=== PATIENT | female | born 2000 | race African-American/Black ===

== ENCOUNTER 2020-08-08 18:28 | Emergency (ER) | payer OTHER ==
[2020-08-08] MEDS ORDERED: ONDANSETRON 4 MG TAB.RAPDIS PO ONE (18:38)
--- NOTE | 2020-08-08 18:39 | ER Document Report ---
ED Medical Screen (RME) - General Chief Complaint: Abdominal Cramping Stated Complaint: ABDOMINAL CRAMPING Time Seen by Provider: 08/08/20 18:35 Mode of Arrival: Ambulatory Information source: Patient Notes: Patient presents complaining of abdominal cramping with some vaginal spotting for the past 6 days. Patient denies any urinary symptoms or vaginal discharge. Patient does report nausea although denies any vomiting or diarrhea. I have greeted and performed a rapid initial assessment of this patient. A comprehensive ED assessment and evaluation of the patient, analysis of test results and completion of the medical decision making process will be conducted by additional ED providers. Physical Exam - Abdominal Tenderness: Tender - Generalized abdomen
[2020-08-08 19:16] LABS: ABSOLUTE EOSINOPHILS # (AUTO) 0.2 10^3/uL (0.0-0.6); ABSOLUTE LYMPHOCYTES (AUTO) 3.8 10^3/uL (0.5-4.7); ABSOLUTE MONOCYTES (AUTO) 0.7 10^3/uL (0.1-1.4); ABSOLUTE NEUT (AUTO) 2.6 10^3/uL (1.7-8.2); BASOPHILS % (AUTO) 0.5 % (0-2); EOSINOPHILS % (AUTO) 3.1 % (0-6); HEMATOCRIT 41.9 % (36.0-47.0); HEMOGLOBIN 14.7 g/dL (12.0-15.5); LYMPHOCYTES % (AUTO) 51.3 % (13-45); MEAN CORPUSCULAR HEMOGLOBIN 32.4 pg (27.0-33.4); MEAN CORPUSCULAR HGB CONC 35.2 g/dL (32.0-36.0); MEAN CORPUSCULAR VOLUME 92 fl (80-97); MONOCYTES % (AUTO) 9.4 % (3-13); PLATELET COUNT 321 10^3/uL (150-450); RED BLOOD COUNT 4.55 10^6/uL (3.72-5.28); RED CELL DISTRIBUTION WIDTH 13.7 % (11.5-14.0); SEGMENTED NEUTROPHILS % (AUTO) 35.7 % (42-78); TOTAL CELLS COUNTED % (AUTO) 100 %; WHITE BLOOD COUNT 7.4 10^3/uL (4.0-10.5)
[2020-08-08 19:22] LABS: APPEARANCE,URINE CLEAR; BILIRUBIN,URINE NEGATIVE (NEGATIVE); COLOR,URINE YELLOW; GLUCOSE, URINE NEGATIVE (NEGATIVE); KETONES,URINE NEGATIVE (NEGATIVE); LEUKOCYTE ESTERASE,URINE NEGATIVE (NEGATIVE); NITRITE,URINE NEGATIVE (NEGATIVE); PROTEIN,URINE 30 mg/dL (NEGATIVE); URINE SPECIFIC GRAVITY 1.032
[2020-08-08 19:30] LABS: ALBUMIN 4.9 g/dL (3.5-5.0); ALKALINE PHOSPHATASE 80 U/L (38-126); ANION GAP 10 (5-19); ASPARTATE AMINO TRANSFERASE 28 U/L (14-36); BILIRUBIN,DIRECT 0.3 mg/dL (0.0-0.4); BILIRUBIN,TOTAL 0.5 mg/dL (0.2-1.3); BLOOD UREA NITROGEN 11 mg/dL (7-20); CALCIUM 9.7 mg/dL (8.4-10.2); CARBON DIOXIDE 27 mmol/L (22-30); CHLORIDE 101 mmol/L (98-107); GLUCOSE 103 mg/dL (75-110); POTASSIUM 4.2 mmol/L (3.6-5.0); TOTAL PROTEIN 8.2 g/dL (6.3-8.2)
[2020-08-08 20:54] LABS: CHLAM PCR NOT DETECTED (NOT DETECT)
--- NOTE | 2020-08-08 21:35 | ER Document Report ---
ED GI/ - General Chief Complaint: Vaginal Bleeding Stated Complaint: ABDOMINAL CRAMPING Time Seen by Provider: 08/08/20 18:35 Primary Care Provider: [facility] [Provider Group] - Follow up as needed [place] [facility] [Provider Group] - Follow up as needed [facility] [Provider Group] - Follow up as needed Mode of Arrival: Ambulatory Notes: Patient is a 20-year-old female who presents emergency department with a chief complaint of abdominal discomfort. States it is in her general abdomen. She also states that she has been having some spotting for the past 6 days. Patient states that she is on progesterone only does not get a menstrual cycle. States that she has sexually active. Denies any discomfort in her pelvic area. Patient also states that she has some breast tenderness. - Related Data Allergies/Adverse Reactions: No Known Allergies Allergy (Unverified 08/08/20 18:41) Past Medical History - General Information source: Patient - Social History Smoking Status: Never Smoker Chew tobacco use (# tins/day): No Frequency of alcohol use: None Drug Abuse: None Family History: Reviewed & Not Pertinent Patient has homicidal ideation: No Review of Systems - Review of Systems Notes: REVIEW OF SYSTEMS: CONSTITUTIONAL : Denies recent illness. Denies recent unintentional weight loss. Denies fever, chills, or sweats. EENT: Denies eye, ear, throat, or mouth pain, discharge, or symptoms. Denies nasal or sinus congestion. CARDIOVASCULAR: Denies chest pain. RESPIRATORY: Denies shortness of breath, cough, congestion, difficulty breathing, or wheezing. GASTROINTESTINAL: Denies nausea, vomiting, and diarrhea. See HPI. GENITOURINARY: Denies difficulty urinating, burning, blood in urine, urgency or frequency. FEMALE GENITOURINARY: See HPI. MUSCULOSKELETAL: Denies neck and back pain. Denies joint pain or swelling. SKIN: Denies rash, itchiness, or lesions HEMATOLOGIC : Denies easy bruising or bleeding. LYMPHATIC: Denies swollen, painful, enlarged glands. NEUROLOGICAL: Denies no numbness or tingling denies weakness. Denies headache. Denies altered mental status. Denies alteration in speech. PSYCHIATRIC: Denies stress, anxiety, alteration in sleep patterns, or depression. All other systems reviewed and negative. Physical Exam - Vital signs Vitals: Temp Pulse Resp BP Pulse Ox 98.2 F 92 16 130/80 H 100 08/08/20 23:50 08/08/20 23:50 08/08/20 23:50 08/08/20 23:50 08/08/20 23:50 - Notes Notes: PHYSICAL EXAMINATION: GENERAL: Appears well, healthy, well-nourished, no acute distress. HEAD: Normocephalic, atraumatic. EYES: PERRL, conjunctiva normal, all extraocular movements intact, sclera nonicteric ENT: Moist mucous membranes. NECK: Supple, no noticeable swelling, redness, rash. Normal range of motion. LUNGS: Equal breath sounds bilaterally and clear to auscultation. No wheezes rales or rhonchi. CARDIOVASCULAR: S1-S2, regular rate, regular rhythm. Radial pulses 2+, normal. ABDOMEN: Normoactive bowel sounds. Soft, nontender, no guarding, no rebound tenderness, and no masses palpated. EXTREMITIES: Normal strength and range of motion, no pitting or edema. No cyanosis. NEUROLOGICAL: Moves all extremities upon command. Strength 5/5 in all extremities. PSYCH: Normal mood, normal affect. SKIN: Warm, dry. No rash, lesions, ulcerations noted. Normal skin turgor. SIEBEL ARCHITECT: No cervical motion tenderness or adnexal tenderness noted. Moderate white/velazquez discharge noted. Course - Re-evaluation Re-evalutation: 08/08/20 21:38 Hematology is unremarkable. Chemistries are also unremarkable. Patient has a slightly elevated lipase at 213. hCG is negative. Urinalysis is unremarkable, but there is some mucus. Chlamydia and gonorrhea are negative. 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 Pelvic exam done. No cervical motion t enderness or adnexal tenderness noted. Moderate amount of white discharge noted. Wet mount and gonorrhea and chlamydia swabs were sent. 08/08/20 22:36 Patient has 4+ epithelial cells and 4+ bacteria noted on her wet mount. She also has 1+ to be BCs. No yeast or trichomonas noted. Was a patient on Flagyl to treat her for bacterial vaginosis. Patient is in agreement with this plan. Awaiting KUB results. 08/08/20 23:46 KUB shows constipation. Discussed this with patient. Advised to take MiraLAX and increase her water intake. She is in agreement with this plan. Follow-up precautions were given. Verbal discharge instructions were given to the patient. They verbalized understanding. They are stable for discharge. - Vital Signs Vital signs: Temp Pulse Resp BP Pulse Ox 98.2 F 92 16 130/80 H 100 08/08/20 23:50 08/08/20 23:50 08/08/20 23:50 08/08/20 23:50 08/08/20 23:50 - Laboratory Result Diagrams: 08/08/20 18:59 08/08/20 18:59 Laboratory results interpreted by me: 08/08/20 08/08/20 18:59 18:59 Lymph % (Auto) 51.3 H Seg Neutrophils % 35.7 L Urine Protein 30 H Urine Urobilinogen 2.0 H Discharge - Discharge Clinical Impression: Abdominal discomfort, Bacterial vaginosis Condition: Stable Disposition: HOME, SELF-CARE Additional Instructions: You have an overgrowth of natural vaginal bacteria, called bacterial vaginosis. You are being treated with an antibiotic called metronidazole. Do not drink alcohol while taking this medication. Complete all of the antibiotic even if your symptoms have resolved. Return for abdominal pain, vomiting, fever of greater than 101F, or any other symptoms that are worrisome to you. Please follow-up with your [facility] or primary care doctor as needed. You can also take MiraLAX 1 capful daily for constipation. Make sure you drink plenty of water. Prescriptions: Metronidazole [Flagyl 500 mg Tablet] 500 mg PO Q6H #28 tablet Forms: Return to Work Referrals: [facility] [Provider Group] - Follow up as needed [place] [facility] [Provider Group] - Follow up as needed [facility] [Provider Group] - Follow up as needed
[2020-08-08 22:15] LABS: BACTERIA (WET MOUNT) 4+ BACTERIA SEEN; EPITHELIALS (WET MOUNT) 4+ EPITHELIALS SEEN; RBCS (WET MOUNT) RARE RBCS SEEN; T.VAGINALIS (WET MOUNT) NO TRICHOMONAS SEEN; WBCS (WET MOUNT) 1+ WBCS SEEN; YEAST (WET MOUNT) NO YEAST SEEN
[2020-08-08] MEDS ORDERED: METRONIDAZOLE 500 MG TABLET PO ONE (22:35)
--- NOTE | 2020-08-08 23:25 | RADIOLOGY REPORT (SQ) ---
EXAM DESCRIPTION: XR ABDOMEN 1 VIEW (KUB) COMPLETED DATE/TME: 08/08/2020 21:33 CLINICAL HISTORY: 20 years, Female, abdominal discomfort COMPARISON: None. NUMBER OF VIEWS: 1 TECHNIQUE: AP supine examination the abdomen was performed on 2 images. LIMITATIONS: None. FINDINGS: The bowel gas pattern is within normal limits. There is a moderate to large amount of colonic stool suggesting constipation. There is no evidence of pneumoperitoneum or abnormal mass effect. No definite opaque or tract calculus is seen. There is no bony abnormality identified. The visualized lung bases are clear and the heart size is normal. IMPRESSION: Moderate to large amount of colonic stool suggesting constipation. The bowel gas pattern is within normal limits. copyright 2010 [employer]- All Rights Reserved
[2020-08-08 23:51] VITALS: BP 130/80
[2020-08-09 01:28] LABS: CHLAM PCR NOT DETECTED (NOT DETECT)
== END 2020-08-08 23:52 | disposition home or self-care (01) ==
LOC: ER 18:28
DX: N76.0 Acute vaginitis (principal); B96.89 Other specified bacterial agents as the cause of diseases classified elsewhere; K59.00 Constipation, unspecified; N64.59 Other signs and symptoms in breast; Z79.899 Other long term (current) drug therapy
CPT/HCPCS: 99284; 36415; 87210; 83690; 84703; 85025; 80053; 81001; 87491; 87591; 74018; S0119

== ENCOUNTER 2020-09-18 10:49 | Emergency (ER) | payer OTHER ==
[2020-09-18] MEDS ORDERED: IPRATROPIUM/ALBUTEROL 0.5-2.5 MG/3 ML AMPUL NEB ONE (11:41)
[2020-09-18] MEDS ORDERED: PREDNISONE 20 MG TABLET PO ONE (11:41)
--- NOTE | 2020-09-18 11:46 | ER Document Report ---
ED Respiratory Problem - General Chief Complaint: Shortness Of Breath Stated Complaint: SHORTNESS OF BREATH Time Seen by Provider: 09/18/20 11:34 Notes: CHIEF COMPLAINT: Asthma attack HPI: 20-year-old female with history of asthma presenting for asthma exacerbation. States it started today. States this feels like her typical asthma attack. States she did use her inhaler this morning one time without significant resolution of symptoms. No fever no other recent illness. ROS: See HPI - all other systems were reviewed and are otherwise negative Constitutional: no fever Eyes: no drainage, no blurred vision ENT: no runny nose, no sore throat Cardiovascular: no chest pain Resp: + SOB, +- cough GI: no vomiting, no diarrhea, no abdominal pain : no dysuria Integumentary: no rash Allergy: no hives Musculoskeletal: no extremity pain or swelling Neurological: no numbness/tingling, no weakness MEDICATIONS: I agree with the patient medications as charted by the RN. ALLERGIES: I agree with the allergies as charted by the RN. PAST MEDICAL HISTORY/PAST SURGICAL HISTORY: Reviewed and agree as charted by RN. SOCIAL HISTORY: Reviewed and agree as charted by RN. FAMILY HISTORY: No significant familial comorbid conditions directly related to patient complaint EXAM: Reviewed vital signs as charted by RN. CONSTITUTIONAL: Alert and oriented and responds appropriately to questions. Well-appearing; well-nourished HEAD: Normocephalic; atraumatic EYES: PERRL; Conjunctivae clear, sclerae non-icteric ENT: normal nose; no rhinorrhea; moist mucous membranes; pharynx without lesions noted, no uvula edema or deviation, no tonsillar hypertrophy, phonation normal NECK: Supple without meningismus; non-tender; no cervical lymphadenopathy, no masses CARD: RRR; no murmurs, no clicks, no rubs, no gallops; symmetric distal pulses RESP: Normal chest excursion without splinting or tachypnea; breath sounds with inspiratory and expiratory wheezing with poor air movement, no rhonchi, no rales, pulse oximetry 100% on room air not hypoxic ABD/GI: Normal bowel sounds; non-distended; soft, non-tender, no rebound, no guarding; no palpable organomegaly or masses. BACK: The back appears normal and is non-tender to palpation, there is no CVA tenderness EXT: Normal ROM in all joints; no cyanosis, no effusions, no edema SKIN: Normal color for age and race; warm; dry; good turgor; no acute lesions noted NEURO: Moves all extremities equally; Motor and sensory function intact PSYCH: The patient's mood and manner are appropriate. Grooming and personal hygiene are appropriate. MDM: 20-year-old female with asthma history presenting for evaluation of asthma attack this morning. States her shortness of breath feels like her typical asthma. Will give breathing treatment steroids and reassess - Related Data Allergies/Adverse Reactions: No Known Allergies Allergy (Verified 09/18/20 11:49) Past Medical History - Social History Smoking Status: Unknown if Ever Smoked Family History: Reviewed & Not Pertinent Physical Exam - Vital signs Vitals: Temp Pulse Resp BP Pulse Ox 98.7 F 100 28 H 146/78 H 100 09/18/20 11:09 09/18/20 11:09 09/18/20 11:09 09/18/20 11:09 09/18/20 11:09 Course - Re-evaluation Re-evalutation: 09/18/20 12:47 Patient feels much better at this time. Lung sounds are clear to auscultation she is completing her second nebulized treatment at this time. 09/18/20 13:23 Patient continues to do well. She would like 1 more treatment prior to discharge. - Vital Signs Vital signs: Temp Pulse Resp BP Pulse Ox 98.7 F 100 28 H 146/78 H 100 09/18/20 11:09 09/18/20 11:09 09/18/20 11:09 09/18/20 11:09 09/18/20 11:09 Discharge - Discharge Clinical Impression: Asthma exacerbation Qualifiers: Asthma severity: moderate Asthma persistence: persistent Qualified Code(s): J45.41 - Moderate persistent asthma with (acute) exacerbation Condition: Stable Disposition: HOME, SELF-CARE Additional Instructions: 1. take the medications as prescribed 2. if you were prescribed an Albuterol inhaler, use it as instructed, 2 puffs every 4 hours as needed for cough/wheezing 3. call your primary care provider as soon as possible to schedule recheck appt. in the office. 4. return to the ED for any worsening condition, shortness of breath or continued fever that does not resolve with Motrin/Tylenol Prescriptions: Prednisone [Deltasone 20 mg Tablet] 20 mg PO BID #10 tablet Albuterol Sulfate [Ventolin 0.083% Neb 2.5 mg/3 mL Ampul] 1 vial NEB Q4 #1 packet Referrals: JIMMY JACK MD [COMMUNITY BASED STAFF] - Follow up as needed
[2020-09-18] MEDS ORDERED: ALBUTEROL SULFATE 0.083% NEB 2.5 MG/3 ML AMPUL NEB ONE (13:23)
[2020-09-18 14:13] VITALS: BP 137/87
== END 2020-09-18 14:13 | disposition home or self-care (01) ==
LOC: ER 10:49
DX: J45.41 Moderate persistent asthma with (acute) exacerbation (principal)
CPT/HCPCS: 94640 ×2; 99284; J7512; J7613